=== PATIENT | female | born 2000 | race African-American/Black ===

== ENCOUNTER 2019-12-24 16:22 | Emergency (ER) | payer BC ==
[~2019-12-24] VITALS: Ht 157.5 cm; Wt 90.7 kg
[2019-12-24 16:55] LABS: AMP/METHAMP Negative (Negative); BARBITURATES Negative (Negative); BENZODIAZEPINES Negative (Negative); COCAINE Negative (Negative); METHADONE Negative (Negative); OPIATES Negative (Negative); PCP Negative (Negative)
[2019-12-24 17:08] LABS: URINE BILIRUBIN NEGATIVE (Negative); URINE BLOOD 3+ (Negative); URINE CLARITY CLEAR; URINE COLOR YELLOW; URINE GLUCOSE-RANDOM* NEGATIVE (Negative); URINE KETONES NEGATIVE (Negative); URINE NITRITE-REFLEX NEGATIVE (Negative); URINE PROTEIN (DIPSTICK) NEGATIVE (Negative); URINE SPECIFIC GRAVITY >= 1.030 (1.005-1.035)
[2019-12-24 17:10] LABS: URINE LEUKOCYTES-REFLEX 2+ (Negative)
[2019-12-24 17:17] LABS: SQUAMOUS >10 Many /LPF (0-3)
[2019-12-24 17:18] LABS: CASTS None Seen /LPF (None Seen); CRYSTALS None Seen /LPF (None Seen)
[2019-12-24 17:41] LABS: ABSOLUTE NEUTROPHILS 8.3 thou/uL (1.4-8.2); BASOPHILS 0.9 % (0.0-2.0); EOSINOPHILS 0.8 % (0.0-3.0); HEMATOCRIT 39.5 % (37.0-47.0); HEMOGLOBIN 12.8 gm/dL (12.0-15.0); LYMPHOCYTES 16.2 % (24.0-44.0); MCH 26.2 pg (26.0-34.0); MCHC 32.4 g/dL (28.0-37.0); MCV 80.7 fL (80.0-100.0); MONOCYTES 7.3 % (1.0-8.0); PLATELET COUNT 417 thou/uL (150-400); POLYS 74.8 % (36.0-66.0); RBC 4.89 mil/uL (4.20-5.00); WBC 11.1 thou/uL (4.0-11.0)
[2019-12-24 17:51] LABS: CALCIUM 9.3 mg/dL (8.5-10.1); CREATININE 0.7 mg/dL (0.6-1.0); POTASSIUM 4.8 mmol/L (3.5-5.1)
[2019-12-24 17:57] LABS: ALBUMIN 3.7 g/dL (3.4-5.0); TOTAL BILIRUBIN 0.2 mg/dL (<0.1-1.0); TOTAL PROTEIN 7.9 g/dL (6.4-8.2)
[2019-12-24 18:45] VITALS: BP 128/79
--- NOTE | 2019-12-25 09:27 | EKG ---
[facility] [place] [address] ELECTROCARDIOGRAM REPORT Name: DERRELLFAROOQ Room #: DEP [facility]#: [id number] Admission: 12/24/19 Attend Phys: Discharge: 12/24/19 Date of : 89 Report #: [id number] THIS REPORT FOR: cc: TAHIR - Nancy family physician/PCP TAHIR - Nancy family physician/PCP Derrell Pena MD [facility] THIS REPORT FOR: //name// [facility] ED Test Date: 2019-12-24 Test Time: 16:43:02 Pat Name: FAROOQ RIVERS Department: Room: Gender: F Bill Sorter: [facility] : 2000 Requested By: Jj Fischer Order Number: [id number] MD: Derrell Pena Measurements Intervals [place] Rate: 107 P: 33 NE: 154 QRS: 4 QRSD: 75 T: 27 QT: 315 QTc: 421 Interpretive Statements Sinus tachycardia Otherwise normal tracing No previous ECG available for comparison Electronically Signed On 12-25-2019 9:26:24 CDT by Derrell Pena [email or web address] <ELECTRONICALLY SIGNED> By: Derrell Pena MD, [facility] 12/25/19 0926 42 42 Derrell Pena MD, [facility] /EPI
== END 2019-12-24 18:47 | disposition home or self-care (01) ==
LOC: ER 16:22
PROVIDERS: Physician Assistant
DX: R00.2 Palpitations (principal); R13.10 Dysphagia, unspecified; R25.1 Tremor, unspecified